=== PATIENT | male | born 1950 | race Caucasian/White ===

== ENCOUNTER 2021-11-02 17:21 | Emergency (ER) | payer OTHER ==
[2021-11-02 18:15] LABS: HEMOGLOBIN 13.6 gm/dl (14.0-17.5); RED BLOOD COUNT 4.37 M/UL (4.20-5.50); WHITE BLOOD COUNT 9.7 K/UL (4.5-11.0)
[2021-11-02 18:36] LABS: BUN/CREATININE RATIO 10 (0-10)
== END 2021-11-02 21:37 | disposition home or self-care (01) ==
LOC: ER1 17:21
PROVIDERS: Nurse Practitioner
DX: R10.31 Right lower quadrant pain (principal); R11.0 Nausea; Z87.442 Personal history of urinary calculi; I10 Essential (primary) hypertension; Z88.8 Allergy status to other drugs, medicaments and biological substances; Z91.030 Bee allergy status; Z86.16 Personal history of COVID-19
CPT/HCPCS: 80053; 81001; 85025; 87086; 99284

== ENCOUNTER 2021-11-03 12:19 | Emergency (ER) | payer OTHER ==
[2021-11-03 13:07] LABS: HEMOGLOBIN 13.8 gm/dl (14.0-17.5); RED BLOOD COUNT 4.39 M/UL (4.20-5.50); WHITE BLOOD COUNT 8.2 K/UL (4.5-11.0)
== END 2021-11-03 15:39 | disposition home or self-care (01) ==
LOC: ER1 12:19
PROVIDERS: Emergency Medicine
DX: K76.9 Liver disease, unspecified (principal); Z91.030 Bee allergy status; Z88.8 Allergy status to other drugs, medicaments and biological substances
CPT/HCPCS: 80053; 83690; 85025; 99284; Q9967